=== PATIENT | female | born 1955 | race Asian ===

== ENCOUNTER 2017-03-08 13:55 | Inpatient (IN) | payer MEDICARE, OTHER, MEDICAID ==
[2017-03-08 17:25] LABS: ADD MAN DIFF? NO; HAAIG REFLEX REFLEX FILED
[2017-03-08 17:28] LABS: ABNORMAL IP MESSAGE 1; BASOPHILS % 0.3 % (0.0-2.0); EOSINOPHILS # 0.3 10^3/ul (0.0-0.5); EOSINOPHILS % 2.3 % (0.0-7.0); HEMATOCRIT 33.5 % (37.0-47.0); HEMOGLOBIN 11.9 g/dl (12.0-16.0); LYMPHOCYTES # 1.7 10^3/ul (0.8-2.9); LYMPHOCYTES % 14.5 % (15.0-51.0); MEAN CORPUSCULAR HGB CONC 35.5 g/dl (32.0-37.0); MEAN CORPUSCULAR VOLUME 90.1 fl (82.0-101.0); MONOCYTE # 1.5 10^3/ul (0.3-0.9); MONOCYTES % 13.3 % (0.0-11.0); NEUTROPHIL # 7.9 10^3/ul (1.6-7.5); NEUTROPHILS % 69.2 % (39.0-77.0); NUCLEATED RED BLOOD CELLS% 0.2 /100WBC (0.0-0.0); PLATELET COUNT 144 10^3/UL (140-415); RED BLOOD COUNT 3.72 10^6/ul (4.20-5.40); RED CELL DISTRIBUTION WIDTH 19.4 % (11.5-14.5)
[2017-03-08 17:28] LABS: WHITE BLOOD COUNT 11.4 10^3/ul (4.8-10.8)
[2017-03-08 17:42] LABS: ADD UMIC NO; UR ASCORBIC ACID NEGATIVE (NEGATIVE); UR BILIRUBIN (Dip) NEGATIVE (NEGATIVE); UR BLOOD (Dip) NEGATIVE (NEGATIVE); UR CLARITY CLEAR (CLEAR); UR COLOR AMBER (YELLOW); UR GLUCOSE (Dip) 1+ mg/dL (NEGATIVE); UR KETONES (Dip) NEGATIVE (NEGATIVE); UR LEUKOCYTE ESTERASE (Dip) NEGATIVE Leu/ul (NEGATIVE); UR NITRITE (Dip) NEGATIVE (NEGATIVE); UR SPECIFIC GRAVITY (Dip) 1.013 (1.003-1.030); UR TOTAL PROTEIN (Dip) NEGATIVE (NEGATIVE); UR UROBILINOGEN (Dip) 2+ mg/dL (NEGATIVE)
[2017-03-08 17:45] LABS: INR 0.93; PROTIME 12.5 Sec (11.9-14.9)
[2017-03-08 17:46] LABS: PARTIAL THROMBOPLASTIN TIME 32.3 Sec (25.0-35.0)
[2017-03-08 17:48] LABS: ALANINE AMINOTRANSFERASE 577 IU/L (13-69); ALBUMIN 3.3 g/dl (3.3-4.9); ALBUMIN/GLOBULIN RATIO 0.94; ALKALINE PHOSPHATASE 162 IU/L (42-121); AMYLASE 208 U/L (11-123); ANION GAP 18 (8-16); ASPARTATE AMINO TRANSFERASE 655 IU/L (15-46); BILIRUBIN,INDIRECT 0.5 mg/dl (0-1.1); BILIRUBIN,TOTAL 4.2 mg/dl (0.2-1.3); BLOOD UREA NITROGEN 71 mg/dl (7-20); CALCIUM 8.6 mg/dl (8.4-10.2); CARBON DIOXIDE 25 mmol/L (21-31); CHLORIDE 101 mmol/L (97-110); CREATININE 4.07 mg/dl (0.44-1.00); GLUCOSE 206 mg/dl (70-220); LIPASE 1323 U/L (23-300); POTASSIUM 3.9 mmol/L (3.5-5.1); SODIUM 140 mmol/L (135-144); TOTAL PROTEIN 6.8 g/dl (6.1-8.1)
[2017-03-08 18:03] LABS: TROPONIN-I < 0.012 ng/ml (0.00-0.12)
[2017-03-08 18:09] LABS: POSITIVE DIFF @See below
[2017-03-08] MEDS ORDERED: ACETAMINOPHEN 325 MG TAB PO (18:30)
[2017-03-08] MEDS ORDERED: ONDANSETRON 4 MG INJ IV (18:30)
[2017-03-08] MEDS: PIPER-TAZO 3.375 GM IV (PMX) 50 ML IVPB (18:34)
[2017-03-08 18:51] LABS: HEPATITIS B SURFACE ANTIGEN NEGATIVE (NEGATIVE)
[2017-03-08 19:10] LABS: HEPATITIS B CORE ANTIBODY REACTIVE (NEGATIVE); HEPATITIS C VIRAL ANTIBODY NEGATIVE (NEGATIVE)
[2017-03-08] MEDS: D5W-0.45 NACL + KCL 20 MEQ 1,000 ML IV (20:10)
[2017-03-08 21:39] LABS: CREATININE,URINE RANDOM 74.21 mg/dl (20-320); PROTEIN/CREAT RATIO 0.32 RATIO
[2017-03-08] MEDS: PIPER-TAZO 2.25 GM (PMX) 50 ML IVPB (22:49)
[2017-03-08 23:25] LABS: SODIUM,URINE RANDOM 51 mmol/L (30-90)
[2017-03-09] MEDS: INSULIN ASPART [NOVOLOG] 3 ML PEN SC ×4 (00:49→13:45)
[2017-03-09] MEDS: morphine 2 MG INJ IV (04:42)
[2017-03-09] MEDS: D5W-0.45 NACL + KCL 20 MEQ 1,000 ML IV ×2 (05:19→16:01)
[2017-03-09 06:15] LABS: ADD MAN DIFF? NO
[2017-03-09 06:26] LABS: WHITE BLOOD COUNT 10.2 10^3/ul (4.8-10.8)
[2017-03-09 06:26] LABS: ABNORMAL IP MESSAGE 1; BASOPHILS % 0.3 % (0.0-2.0); EOSINOPHILS # 0.2 10^3/ul (0.0-0.5); EOSINOPHILS % 2.1 % (0.0-7.0); HEMATOCRIT 29.6 % (37.0-47.0); HEMOGLOBIN 10.3 g/dl (12.0-16.0); LYMPHOCYTES # 0.9 10^3/ul (0.8-2.9); LYMPHOCYTES % 8.9 % (15.0-51.0); MEAN CORPUSCULAR HEMOGLOBIN 31.8 pg (29.0-33.0); MEAN CORPUSCULAR HGB CONC 34.8 g/dl (32.0-37.0); MEAN CORPUSCULAR VOLUME 91.4 fl (82.0-101.0); MEAN PLATELET VOLUME 12.2 fl (7.4-10.4); MONOCYTE # 1.6 10^3/ul (0.3-0.9); MONOCYTES % 15.7 % (0.0-11.0); NEUTROPHIL # 7.4 10^3/ul (1.6-7.5); NEUTROPHILS % 72.5 % (39.0-77.0); NUCLEATED RED BLOOD CELLS% 0.2 /100WBC (0.0-0.0); PLATELET COUNT 120 10^3/UL (140-415); POSITIVE DIFF @See below; RED BLOOD COUNT 3.24 10^6/ul (4.20-5.40); RED CELL DISTRIBUTION WIDTH 19.8 % (11.5-14.5)
[2017-03-09 07:08] LABS: CREATINE KINASE 113 IU/L (23-200)
[2017-03-09 07:08] LABS: URIC ACID 9.9 mg/dl (3.1-7.9)
[2017-03-09 07:11] LABS: ALANINE AMINOTRANSFERASE 465 IU/L (13-69); ALBUMIN 2.5 g/dl (3.3-4.9); ALBUMIN/GLOBULIN RATIO 0.75; ALKALINE PHOSPHATASE 121 IU/L (42-121); ANION GAP 12 (8-16); ASPARTATE AMINO TRANSFERASE 531 IU/L (15-46); BILIRUBIN,INDIRECT 0.4 mg/dl (0-1.1); BILIRUBIN,TOTAL 3.6 mg/dl (0.2-1.3); BLOOD UREA NITROGEN 66 mg/dl (7-20); CALCIUM 8.2 mg/dl (8.4-10.2); CARBON DIOXIDE 23 mmol/L (21-31); CHLORIDE 107 mmol/L (97-110); GLUCOSE 215 mg/dl (70-220); MAGNESIUM 2.4 mg/dl (1.7-2.5); POTASSIUM 4.4 mmol/L (3.5-5.1); SODIUM 138 mmol/L (135-144); TOTAL PROTEIN 5.8 g/dl (6.1-8.1)
[2017-03-09 07:19] LABS: FREE THYROXINE INDEX (Calc) 2.56 ug/ml (0.65-3.89); T3 UPTAKE 49.3 % (23.5-40.5); T4 (THYROXINE) 5.2 ug/dl (5.5-11.0)
[2017-03-09] MEDS: PIPER-TAZO 2.25 GM (PMX) 50 ML IVPB ×3 (07:22→21:40)
[2017-03-09] MEDS: PANTOPRAZOLE 40 MG INJ IV (07:22)
[2017-03-09 08:01] LABS: HEMOGLOBIN A1C 8.1 % (0-5.9)
[2017-03-09] MEDS: ALLOPURINOL 100 MG TAB PO (09:26)
[2017-03-09] MEDS ORDERED: hydrALAzine 20 MG INJ IV (18:30)
[2017-03-10] MEDS: D5W-0.45 NACL + KCL 20 MEQ 1,000 ML IV ×3 (03:52→21:06)
[2017-03-10] MEDS: INSULIN ASPART [NOVOLOG] 3 ML PEN SC ×5 (06:00→21:41)
[2017-03-10] MEDS: PIPER-TAZO 2.25 GM (PMX) 50 ML IVPB ×3 (06:21→21:34)
[2017-03-10] MEDS: PANTOPRAZOLE 40 MG INJ IV (06:21)
[2017-03-10] MEDS: ALLOPURINOL 100 MG TAB PO (08:59)
[2017-03-10 09:08] LABS: ADD MAN DIFF? NO
[2017-03-10 09:17] LABS: ABNORMAL IP MESSAGE 1; BASOPHIL # 0.1 10^3/ul (0.0-0.1); BASOPHILS % 0.4 % (0.0-2.0); EOSINOPHILS # 0.3 10^3/ul (0.0-0.5); EOSINOPHILS % 1.8 % (0.0-7.0); HEMOGLOBIN 11.6 g/dl (12.0-16.0); LYMPHOCYTES # 2.1 10^3/ul (0.8-2.9); LYMPHOCYTES % 13.9 % (15.0-51.0); MEAN CORPUSCULAR HEMOGLOBIN 31.7 pg (29.0-33.0); MEAN CORPUSCULAR HGB CONC 35.2 g/dl (32.0-37.0); MEAN CORPUSCULAR VOLUME 90.2 fl (82.0-101.0); MEAN PLATELET VOLUME 12.6 fl (7.4-10.4); MONOCYTE # 1.9 10^3/ul (0.3-0.9); MONOCYTES % 12.4 % (0.0-11.0); NEUTROPHIL # 10.6 10^3/ul (1.6-7.5); NEUTROPHILS % 70.2 % (39.0-77.0); NUCLEATED RED BLOOD CELLS # 0.1 10^3/ul (0.0-0.0); NUCLEATED RED BLOOD CELLS% 0.5 /100WBC (0.0-0.0); PLATELET COUNT 135 10^3/UL (140-415); RED BLOOD COUNT 3.66 10^6/ul (4.20-5.40); RED CELL DISTRIBUTION WIDTH 20.8 % (11.5-14.5)
[2017-03-10 09:17] LABS: WHITE BLOOD COUNT 15.1 10^3/ul (4.8-10.8)
[2017-03-10 09:25] LABS: POSITIVE DIFF @See below
[2017-03-10 10:22] LABS: ANION GAP 19 (8-16); BLOOD UREA NITROGEN 47 mg/dl (7-20); CALCIUM 8.9 mg/dl (8.4-10.2); CARBON DIOXIDE 23 mmol/L (21-31); CHLORIDE 106 mmol/L (97-110); CREATININE 3.11 mg/dl (0.44-1.00); GLUCOSE 105 mg/dl (70-220); POTASSIUM 4.5 mmol/L (3.5-5.1); SODIUM 143 mmol/L (135-144)
[2017-03-10 11:06] LABS: HEMATOCRIT 30.2 % (37.0-47.0); HEMOGLOBIN 10.5 g/dl (12.0-16.0); MEAN CORPUSCULAR HGB CONC 34.8 g/dl (32.0-37.0); MEAN CORPUSCULAR VOLUME 92.1 fl (82.0-101.0); MEAN PLATELET VOLUME 12.1 fl (7.4-10.4); NUCLEATED RED BLOOD CELLS% 0.4 /100WBC (0.0-0.0); PLATELET COUNT 112 10^3/UL (140-415); RED BLOOD COUNT 3.28 10^6/ul (4.20-5.40); RED CELL DISTRIBUTION WIDTH 20.4 % (11.5-14.5)
[2017-03-10 11:06] LABS: WHITE BLOOD COUNT 12.1 10^3/ul (4.8-10.8)
[2017-03-10 11:11] LABS: ADD MAN DIFF? YES; POSITIVE DIFF @See below
[2017-03-10 11:30] LABS: ANISOCYTOSIS 2+ (0-0); BAND NEUTROPHILS #M 2.6 10^3/ul (0.0-0.6); BAND NEUTROPHILS % (M) 22 % (0-4); BASOPHIL #M 0.1 10^3/ul (0.0-0.0); BASOPHILS % (M) 1 % (0-2); EOSINOPHILS % (M) 2 % (0-7); HYPOCHROMASIA 2+ (0-0); LYMPHOCYTES #M 1.4 10^3/ul (0.8-2.9); LYMPHOCYTES % (M) 12 % (15-51); MONOCYTE #M 1.3 10^3/ul (0.3-0.9); MONOCYTES % (M) 11 % (0-11); PLATELET ESTIMATE DECREASED; POLYCHROMASIA 1+ (0-0); SEG NEUT #M 6.6 10^3/ul (1.7-7.5); SEGMENTED NEUTROPHILS (M) % 52 % (39-77); TARGET CELLS 1+ (0-0)
[2017-03-10 11:33] LABS: ALANINE AMINOTRANSFERASE 384 IU/L (13-69); ALBUMIN 2.5 g/dl (3.3-4.9); ALBUMIN/GLOBULIN RATIO 0.83; ALKALINE PHOSPHATASE 109 IU/L (42-121); ANION GAP 14 (8-16); ASPARTATE AMINO TRANSFERASE 412 IU/L (15-46); BILIRUBIN,INDIRECT 0.5 mg/dl (0-1.1); BILIRUBIN,TOTAL 4.1 mg/dl (0.2-1.3); BLOOD UREA NITROGEN 44 mg/dl (7-20); CALCIUM 8.3 mg/dl (8.4-10.2); CARBON DIOXIDE 22 mmol/L (21-31); CHLORIDE 107 mmol/L (97-110); CREATININE 2.97 mg/dl (0.44-1.00); GLUCOSE 243 mg/dl (70-220); POTASSIUM 4.1 mmol/L (3.5-5.1); SODIUM 139 mmol/L (135-144); TOTAL PROTEIN 5.5 g/dl (6.1-8.1)
[2017-03-10] MEDS: hydrALAzine 20 MG INJ IV (21:06)
[2017-03-11] MEDS: PIPER-TAZO 2.25 GM (PMX) 50 ML IVPB ×3 (05:56→21:31)
[2017-03-11] MEDS: PANTOPRAZOLE 40 MG INJ IV ×2 (05:57→19:08)
[2017-03-11] MEDS: INSULIN ASPART [NOVOLOG] 3 ML PEN SC ×3 (05:58→18:00)
[2017-03-11] MEDS: D5W-0.45 NACL + KCL 20 MEQ 1,000 ML IV ×2 (05:58→12:39)
[2017-03-11] MEDS ORDERED: EPHEDrine SULFATE 50 MG/5 ML SYG (07:00)
[2017-03-11] MEDS ORDERED: CIPRO 400 MG/200 ML D5W IVPB (07:00)
[2017-03-11] MEDS ORDERED: LIDOCAINE 100 MG SYRINGE (07:00)
[2017-03-11] MEDS ORDERED: ONDANSETRON 4 MG INJ IV (16:00)
[2017-03-11] MEDS ORDERED: INDOMETHACIN 50 MG SUPP PR (16:01)
[2017-03-11] MEDS ORDERED: FENTAnyl 50 MCG/ML VIAL (16:08)
[2017-03-11] MEDS ORDERED: MIDAZOLAM 1 MG/ML 2 ML INJ (16:08)
[2017-03-11] MEDS ORDERED: PROPOFOL 20 ML (16:08)
[2017-03-11] MEDS ORDERED: SUCCINYLCHOLINE CHLORIDE 100 MG/5 ML SYG IV (16:08)
[2017-03-11] MEDS ORDERED: PHENYLephrine (100 MCG/ML) 5ML SYG (16:23)
[2017-03-11] MEDS ORDERED: GLUCAGON 1 MG INJ (16:33)
[2017-03-11] MEDS: IOHEXOL 300MG/ML 30 ML BTL (16:37)
[2017-03-11] MEDS ORDERED: ONDANSETRON 4 MG INJ (16:52)
[2017-03-11] MEDS ORDERED: SUGAMMADEX SODIUM 200 MG/2 ML VIAL IV (17:31)
[2017-03-11] MEDS ORDERED: ROCURONIUM 50 MG INJ (17:31)
[2017-03-11] MEDS: ALLOPURINOL 100 MG TAB PO (19:08)
[2017-03-12] MEDS: INSULIN ASPART [NOVOLOG] 3 ML PEN SC ×5 (00:37→20:43)
[2017-03-12] MEDS: D5W-0.45 NACL + KCL 20 MEQ 1,000 ML IV ×3 (05:22→23:10)
[2017-03-12] MEDS: PIPER-TAZO 2.25 GM (PMX) 50 ML IVPB (05:23)
[2017-03-12] MEDS: PANTOPRAZOLE 40 MG INJ IV ×2 (05:23→17:51)
[2017-03-12 07:31] LABS: ADD MAN DIFF? NO
[2017-03-12 07:38] LABS: BASOPHILS % 0.4 % (0.0-2.0); EOSINOPHILS # 0.2 10^3/ul (0.0-0.5); EOSINOPHILS % 1.8 % (0.0-7.0); HEMATOCRIT 26.4 % (37.0-47.0); HEMOGLOBIN 9.3 g/dl (12.0-16.0); LYMPHOCYTES # 1.5 10^3/ul (0.8-2.9); LYMPHOCYTES % 16.2 % (15.0-51.0); MEAN CORPUSCULAR HEMOGLOBIN 31.8 pg (29.0-33.0); MEAN CORPUSCULAR HGB CONC 35.2 g/dl (32.0-37.0); MEAN CORPUSCULAR VOLUME 90.4 fl (82.0-101.0); MEAN PLATELET VOLUME 12.6 fl (7.4-10.4); MONOCYTE # 1.1 10^3/ul (0.3-0.9); MONOCYTES % 11.9 % (0.0-11.0); NEUTROPHIL # 6.2 10^3/ul (1.6-7.5); NEUTROPHILS % 66.6 % (39.0-77.0); NUCLEATED RED BLOOD CELLS% 0.3 /100WBC (0.0-0.0); PLATELET COUNT 104 10^3/UL (140-415); RED BLOOD COUNT 2.92 10^6/ul (4.20-5.40); RED CELL DISTRIBUTION WIDTH 20.3 % (11.5-14.5)
[2017-03-12 07:38] LABS: WHITE BLOOD COUNT 9.3 10^3/ul (4.8-10.8)
[2017-03-12 07:49] LABS: ALANINE AMINOTRANSFERASE 285 IU/L (13-69); ALBUMIN 2.3 g/dl (3.3-4.9); ALBUMIN/GLOBULIN RATIO 0.74; ALKALINE PHOSPHATASE 91 IU/L (42-121); ANION GAP 11 (8-16); ASPARTATE AMINO TRANSFERASE 283 IU/L (15-46); BILIRUBIN,INDIRECT 0.6 mg/dl (0-1.1); BILIRUBIN,TOTAL 4.2 mg/dl (0.2-1.3); BLOOD UREA NITROGEN 25 mg/dl (7-20); CALCIUM 8.8 mg/dl (8.4-10.2); CARBON DIOXIDE 23 mmol/L (21-31); CHLORIDE 111 mmol/L (97-110); GLUCOSE 122 mg/dl (70-220); POTASSIUM 4.3 mmol/L (3.5-5.1); SODIUM 141 mmol/L (135-144); TOTAL PROTEIN 5.4 g/dl (6.1-8.1)
[2017-03-12 07:52] LABS: ANION GAP 13 (8-16); BLOOD UREA NITROGEN 25 mg/dl (7-20); CALCIUM 8.5 mg/dl (8.4-10.2); CARBON DIOXIDE 22 mmol/L (21-31); CHLORIDE 111 mmol/L (97-110); CREATININE 2.44 mg/dl (0.44-1.00); GLUCOSE 116 mg/dl (70-220); POTASSIUM 4.5 mmol/L (3.5-5.1); SODIUM 141 mmol/L (135-144)
[2017-03-12] MEDS: ALLOPURINOL 100 MG TAB PO (09:31)
[2017-03-12 11:34] LABS: LIPASE 334 U/L (23-300)
[2017-03-12] MEDS: LEVOFLOXACIN 250MG/D5W (PMX) 50 ML IVPB (12:30)
[2017-03-12 18:08] LABS: HEPATITIS B CORE ANTIBODY REACTIVE (NEGATIVE)
[2017-03-12] MEDS ORDERED: GLUCOSE GEL 15 GRAM TUBE PO ×2 (19:30)
[2017-03-12] MEDS ORDERED: GLUCAGON 1 MG INJ IM (19:30)
[2017-03-12] MEDS ORDERED: GLUCOSE GEL 15 GRAM TUBE BUCCAL (19:30)
[2017-03-12] MEDS ORDERED: DEXTROSE 50% 50 ML SYRINGE IV ×2 (19:30)
[2017-03-13] MEDS: morphine 2 MG INJ IV (04:09)
[2017-03-13] MEDS: PANTOPRAZOLE 40 MG INJ IV ×2 (05:11→17:30)
[2017-03-13 07:19] LABS: ALANINE AMINOTRANSFERASE 301 IU/L (13-69); ALBUMIN 2.8 g/dl (3.3-4.9); ALBUMIN/GLOBULIN RATIO 0.77; ALKALINE PHOSPHATASE 109 IU/L (42-121); ANION GAP 15 (8-16); ASPARTATE AMINO TRANSFERASE 324 IU/L (15-46); BILIRUBIN,INDIRECT 0.8 mg/dl (0-1.1); BILIRUBIN,TOTAL 5.3 mg/dl (0.2-1.3); BLOOD UREA NITROGEN 17 mg/dl (7-20); CARBON DIOXIDE 22 mmol/L (21-31); CHLORIDE 107 mmol/L (97-110); CREATININE 2.37 mg/dl (0.44-1.00); GLUCOSE 150 mg/dl (70-220); LIPASE 200 U/L (23-300); POTASSIUM 4.7 mmol/L (3.5-5.1); SODIUM 139 mmol/L (135-144); TOTAL PROTEIN 6.4 g/dl (6.1-8.1)
[2017-03-13] MEDS: INSULIN ASPART [NOVOLOG] 3 ML PEN SC ×4 (07:30→20:29)
[2017-03-13] MEDS: ALLOPURINOL 100 MG TAB PO (08:25)
[2017-03-13] MEDS: LEVOFLOXACIN 250MG/D5W (PMX) 50 ML IVPB (12:35)
[2017-03-13] MEDS: D5W-0.45 NACL + KCL 20 MEQ 1,000 ML IV (22:35)
[2017-03-14] MEDS: morphine 2 MG INJ IV ×4 (00:41→22:33)
[2017-03-14] MEDS: PANTOPRAZOLE 40 MG INJ IV ×2 (05:05→17:27)
[2017-03-14] MEDS: INSULIN ASPART [NOVOLOG] 3 ML PEN SC ×4 (07:30→21:00)
[2017-03-14] MEDS: ALLOPURINOL 100 MG TAB PO (08:35)
[2017-03-14] MEDS: hydrALAzine 20 MG INJ IV (08:38)
[2017-03-14] MEDS: LEVOFLOXACIN 250MG/D5W (PMX) 50 ML IVPB (12:04)
[2017-03-14] MEDS: LIDOCAINE 1% (MPF) 5 ML VIAL (15:13)
[2017-03-14] MEDS: D5W-0.45 NACL + KCL 20 MEQ 1,000 ML IV (17:27)
[2017-03-15] MEDS: ONDANSETRON 4 MG INJ IV (03:20)
[2017-03-15] MEDS: PANTOPRAZOLE 40 MG INJ IV ×2 (04:07→17:20)
[2017-03-15] MEDS: morphine 2 MG INJ IV ×3 (04:08→20:53)
[2017-03-15] MEDS: INSULIN ASPART [NOVOLOG] 3 ML PEN SC ×4 (08:14→20:51)
[2017-03-15] MEDS: ALLOPURINOL 100 MG TAB PO (09:33)
[2017-03-15] MEDS: D5W-0.45 NACL + KCL 20 MEQ 1,000 ML IV ×2 (09:33→12:37)
[2017-03-15 10:39] LABS: ADD MAN DIFF? NO
[2017-03-15 10:44] LABS: BASOPHIL # 0.1 10^3/ul (0.0-0.1); BASOPHILS % 0.9 % (0.0-2.0); EOSINOPHILS # 0.2 10^3/ul (0.0-0.5); EOSINOPHILS % 2.2 % (0.0-7.0); HEMATOCRIT 31.9 % (37.0-47.0); HEMOGLOBIN 11.2 g/dl (12.0-16.0); LYMPHOCYTES # 1.7 10^3/ul (0.8-2.9); LYMPHOCYTES % 17.3 % (15.0-51.0); MEAN CORPUSCULAR HGB CONC 35.1 g/dl (32.0-37.0); MEAN CORPUSCULAR VOLUME 91.1 fl (82.0-101.0); MEAN PLATELET VOLUME 12.5 fl (7.4-10.4); MONOCYTES % 10.4 % (0.0-11.0); NEUTROPHIL # 6.4 10^3/ul (1.6-7.5); NEUTROPHILS % 64.2 % (39.0-77.0); NUCLEATED RED BLOOD CELLS% 0.2 /100WBC (0.0-0.0); PLATELET COUNT 122 10^3/UL (140-415); RED CELL DISTRIBUTION WIDTH 18.3 % (11.5-14.5)
[2017-03-15 10:44] LABS: WHITE BLOOD COUNT 9.9 10^3/ul (4.8-10.8)
[2017-03-15 11:03] LABS: INR 1.06; PROTIME 13.9 Sec (11.9-14.9); PT RATIO 1.1
[2017-03-15 11:04] LABS: PARTIAL THROMBOPLASTIN TIME 34.7 Sec (25.0-35.0)
[2017-03-15 11:09] LABS: ALANINE AMINOTRANSFERASE 266 IU/L (13-69); ALBUMIN 2.9 g/dl (3.3-4.9); ALBUMIN/GLOBULIN RATIO 0.82; ALKALINE PHOSPHATASE 123 IU/L (42-121); ANION GAP 16 (8-16); ASPARTATE AMINO TRANSFERASE 357 IU/L (15-46); BILIRUBIN,TOTAL 6.6 mg/dl (0.2-1.3); BLOOD UREA NITROGEN 17 mg/dl (7-20); CALCIUM 9.2 mg/dl (8.4-10.2); CARBON DIOXIDE 22 mmol/L (21-31); CHLORIDE 103 mmol/L (97-110); CREATININE 2.06 mg/dl (0.44-1.00); GLUCOSE 174 mg/dl (70-220); POTASSIUM 4.1 mmol/L (3.5-5.1); SODIUM 137 mmol/L (135-144); TOTAL PROTEIN 6.4 g/dl (6.1-8.1)
[2017-03-15 11:13] LABS: PHOSPHORUS 4.1 mg/dl (2.5-4.9)
[2017-03-15] MEDS: LEVOFLOXACIN 250MG/D5W (PMX) 50 ML IVPB (12:36)
[2017-03-15] MEDS: AMLODIPINE 10 MG TAB PO (16:30)
[2017-03-15] MEDS: MAGNESIUM SULFATE 4 GM/100 ML 100 ML IVPB (16:30)
[2017-03-16] MEDS: morphine 2 MG INJ IV ×3 (02:30→21:29)
[2017-03-16] MEDS: PANTOPRAZOLE 40 MG INJ IV ×2 (05:32→18:05)
[2017-03-16] MEDS: INSULIN ASPART [NOVOLOG] 3 ML PEN SC ×5 (08:06→21:00)
[2017-03-16] MEDS: AMLODIPINE 10 MG TAB PO (08:24)
[2017-03-16] MEDS: ALLOPURINOL 100 MG TAB PO (08:24)
[2017-03-16 08:26] LABS: ALANINE AMINOTRANSFERASE 240 IU/L (13-69); ALBUMIN 2.2 g/dl (3.3-4.9); ALKALINE PHOSPHATASE 112 IU/L (42-121); ANION GAP 11 (8-16); ASPARTATE AMINO TRANSFERASE 335 IU/L (15-46); BILIRUBIN,INDIRECT 0.9 mg/dl (0-1.1); BILIRUBIN,TOTAL 5.5 mg/dl (0.2-1.3); BLOOD UREA NITROGEN 19 mg/dl (7-20); CALCIUM 8.8 mg/dl (8.4-10.2); CARBON DIOXIDE 23 mmol/L (21-31); CHLORIDE 103 mmol/L (97-110); CREATININE 2.15 mg/dl (0.44-1.00); GLUCOSE 172 mg/dl (70-220); POTASSIUM 4.1 mmol/L (3.5-5.1); SODIUM 133 mmol/L (135-144); TOTAL PROTEIN 5.3 g/dl (6.1-8.1)
[2017-03-16] MEDS: LEVOFLOXACIN 250MG/D5W (PMX) 50 ML IVPB (11:04)
[2017-03-16] MEDS: D5W-0.45 NACL + KCL 20 MEQ 1,000 ML IV ×2 (11:05→18:06)
[2017-03-16 21:32] LABS: IRON 110 ug/dl (35-150)
[2017-03-16 21:41] LABS: % IRON SATURATION 41 % SAT (22-52); TOTAL IRON BINDING CAPACITY 268 ug/dl (241-421)
[2017-03-17] MEDS: morphine 2 MG INJ IV ×2 (00:59→20:57)
[2017-03-17] MEDS: D5W-0.45 NACL + KCL 20 MEQ 1,000 ML IV ×2 (04:39→20:51)
[2017-03-17] MEDS: PANTOPRAZOLE 40 MG INJ IV ×2 (04:42→17:19)
[2017-03-17] MEDS: INSULIN ASPART [NOVOLOG] 3 ML PEN SC ×5 (08:53→20:45)
[2017-03-17] MEDS: ALLOPURINOL 100 MG TAB PO (09:28)
[2017-03-17] MEDS: AMLODIPINE 10 MG TAB PO (09:28)
[2017-03-17 10:46] LABS: ALANINE AMINOTRANSFERASE 267 IU/L (13-69); ALBUMIN 2.9 g/dl (3.3-4.9); ALBUMIN/GLOBULIN RATIO 0.82; ALKALINE PHOSPHATASE 146 IU/L (42-121); ANION GAP 14 (8-16); ASPARTATE AMINO TRANSFERASE 447 IU/L (15-46); BILIRUBIN,INDIRECT 1.1 mg/dl (0-1.1); BLOOD UREA NITROGEN 21 mg/dl (7-20); CALCIUM 8.8 mg/dl (8.4-10.2); CARBON DIOXIDE 23 mmol/L (21-31); CHLORIDE 103 mmol/L (97-110); CREATININE 1.99 mg/dl (0.44-1.00); GLUCOSE 233 mg/dl (70-220); MAGNESIUM 1.5 mg/dl (1.7-2.5); POTASSIUM 4.3 mmol/L (3.5-5.1); SODIUM 136 mmol/L (135-144); TOTAL PROTEIN 6.4 g/dl (6.1-8.1)
[2017-03-17] MEDS: LEVOFLOXACIN 250MG/D5W (PMX) 50 ML IVPB (11:37)
[2017-03-17 12:58] LABS: MITOCHONDRIAL TB NEGATIVE (NEGATIVE); SMOOTH MUSCLE AB SCREEN POSITIVE (NEGATIVE); SMOOTH MUSCLE AB TITER 1:40 titer (<1:20)
[2017-03-17 13:42] LABS: ANA SCREEN NEGATIVE (NEGATIVE)
[2017-03-17 14:26] LABS: CERULOPLASMIN 35 mg/dL (18-53)
[2017-03-17] MEDS: INSULIN GLARGINE [LANtus] 3 ML PEN SC (20:50)
[2017-03-18] MEDS: PANTOPRAZOLE 40 MG INJ IV ×2 (05:07→17:30)
[2017-03-18] MEDS: morphine 2 MG INJ IV ×2 (05:11→20:30)
[2017-03-18] MEDS: INSULIN ASPART [NOVOLOG] 3 ML PEN SC ×7 (07:30→20:37)
[2017-03-18 07:48] LABS: ADD MAN DIFF? NO
[2017-03-18 07:51] LABS: WHITE BLOOD COUNT 9.6 10^3/ul (4.8-10.8)
[2017-03-18 07:51] LABS: BASOPHILS % 0.4 % (0.0-2.0); EOSINOPHILS # 0.1 10^3/ul (0.0-0.5); EOSINOPHILS % 1.5 % (0.0-7.0); HEMATOCRIT 26.4 % (37.0-47.0); HEMOGLOBIN 8.9 g/dl (12.0-16.0); LYMPHOCYTES # 1.7 10^3/ul (0.8-2.9); LYMPHOCYTES % 17.2 % (15.0-51.0); MEAN CORPUSCULAR HEMOGLOBIN 31.7 pg (29.0-33.0); MEAN CORPUSCULAR HGB CONC 33.7 g/dl (32.0-37.0); MEAN PLATELET VOLUME 10.9 fl (7.4-10.4); MONOCYTE # 0.9 10^3/ul (0.3-0.9); MONOCYTES % 9.1 % (0.0-11.0); NEUTROPHIL # 6.8 10^3/ul (1.6-7.5); NEUTROPHILS % 70.1 % (39.0-77.0); PLATELET COUNT 125 10^3/UL (140-415); RED BLOOD COUNT 2.81 10^6/ul (4.20-5.40); RED CELL DISTRIBUTION WIDTH 18.3 % (11.5-14.5)
[2017-03-18 07:52] LABS: POSITIVE DIFF @See below
[2017-03-18 08:19] LABS: ANION GAP 9 (8-16); BLOOD UREA NITROGEN 19 mg/dl (7-20); CALCIUM 8.8 mg/dl (8.4-10.2); CARBON DIOXIDE 26 mmol/L (21-31); CHLORIDE 105 mmol/L (97-110); CREATININE 1.83 mg/dl (0.44-1.00); GLUCOSE 133 mg/dl (70-220); POTASSIUM 4.1 mmol/L (3.5-5.1); SODIUM 136 mmol/L (135-144)
[2017-03-18] MEDS: ALLOPURINOL 100 MG TAB PO (09:23)
[2017-03-18] MEDS: AMLODIPINE 10 MG TAB PO (09:23)
[2017-03-18] MEDS: D5W-0.45 NACL + KCL 20 MEQ 1,000 ML IV (13:19)
[2017-03-18] MEDS: INSULIN GLARGINE [LANtus] 3 ML PEN SC (20:33)
[2017-03-19] MEDS: PANTOPRAZOLE 40 MG INJ IV ×2 (06:19→17:10)
[2017-03-19 06:22] LABS: ADD MAN DIFF? NO
[2017-03-19 06:39] LABS: BASOPHIL # 0.1 10^3/ul (0.0-0.1); BASOPHILS % 0.5 % (0.0-2.0); EOSINOPHILS # 0.2 10^3/ul (0.0-0.5); EOSINOPHILS % 2.4 % (0.0-7.0); HEMATOCRIT 28.1 % (37.0-47.0); HEMOGLOBIN 9.6 g/dl (12.0-16.0); LYMPHOCYTES # 1.8 10^3/ul (0.8-2.9); LYMPHOCYTES % 18.2 % (15.0-51.0); MEAN CORPUSCULAR HEMOGLOBIN 32.2 pg (29.0-33.0); MEAN CORPUSCULAR HGB CONC 34.2 g/dl (32.0-37.0); MEAN CORPUSCULAR VOLUME 94.3 fl (82.0-101.0); MEAN PLATELET VOLUME 11.6 fl (7.4-10.4); MONOCYTES % 10.1 % (0.0-11.0); NEUTROPHIL # 6.5 10^3/ul (1.6-7.5); NEUTROPHILS % 67.6 % (39.0-77.0); PLATELET COUNT 157 10^3/UL (140-415); RED BLOOD COUNT 2.98 10^6/ul (4.20-5.40); RED CELL DISTRIBUTION WIDTH 18.4 % (11.5-14.5)
[2017-03-19 06:39] LABS: WHITE BLOOD COUNT 9.7 10^3/ul (4.8-10.8)
[2017-03-19 07:03] LABS: ANION GAP 13 (8-16); BLOOD UREA NITROGEN 23 mg/dl (7-20); CALCIUM 8.8 mg/dl (8.4-10.2); CARBON DIOXIDE 25 mmol/L (21-31); CHLORIDE 106 mmol/L (97-110); CREATININE 1.84 mg/dl (0.44-1.00); GLUCOSE 103 mg/dl (70-220); POTASSIUM 4.5 mmol/L (3.5-5.1); SODIUM 139 mmol/L (135-144)
[2017-03-19] MEDS: INSULIN ASPART [NOVOLOG] 3 ML PEN SC ×7 (07:30→21:00)
[2017-03-19] MEDS: ALLOPURINOL 100 MG TAB PO (08:49)
[2017-03-19] MEDS: AMLODIPINE 10 MG TAB PO (08:49)
[2017-03-19] MEDS: morphine 2 MG INJ IV (16:07)
[2017-03-19] MEDS: INSULIN GLARGINE [LANtus] 3 ML PEN SC (21:38)
[2017-03-20] MEDS: PANTOPRAZOLE 40 MG INJ IV (06:21)
[2017-03-20] MEDS: INSULIN ASPART [NOVOLOG] 3 ML PEN SC ×7 (07:30→20:35)
[2017-03-20] MEDS: ALLOPURINOL 100 MG TAB PO (08:05)
[2017-03-20] MEDS: AMLODIPINE 10 MG TAB PO (08:05)
[2017-03-20] MEDS: SOD CHLORIDE 0.45% 1,000 ML IV (12:50)
[2017-03-20] MEDS: PANTOPRAZOLE (EC) 40 MG TAB PO (17:24)
[2017-03-20] MEDS: INSULIN GLARGINE [LANtus] 3 ML PEN SC (20:34)
[2017-03-20] MEDS: morphine 2 MG INJ IV (20:37)
[2017-03-21] MEDS: PANTOPRAZOLE (EC) 40 MG TAB PO (05:12)
[2017-03-21] MEDS: morphine 2 MG INJ IV (05:12)
[2017-03-21 05:41] LABS: ADD MAN DIFF? NO
[2017-03-21 05:47] LABS: BASOPHIL # 0.1 10^3/ul (0.0-0.1); BASOPHILS % 0.8 % (0.0-2.0); EOSINOPHILS # 0.2 10^3/ul (0.0-0.5); EOSINOPHILS % 1.9 % (0.0-7.0); HEMATOCRIT 26.3 % (37.0-47.0); HEMOGLOBIN 8.9 g/dl (12.0-16.0); LYMPHOCYTES # 1.8 10^3/ul (0.8-2.9); LYMPHOCYTES % 21.2 % (15.0-51.0); MEAN CORPUSCULAR HEMOGLOBIN 31.8 pg (29.0-33.0); MEAN CORPUSCULAR HGB CONC 33.8 g/dl (32.0-37.0); MEAN CORPUSCULAR VOLUME 93.9 fl (82.0-101.0); MONOCYTES % 11.8 % (0.0-11.0); NEUTROPHIL # 5.3 10^3/ul (1.6-7.5); NEUTROPHILS % 63.7 % (39.0-77.0); PLATELET COUNT 184 10^3/UL (140-415); RED CELL DISTRIBUTION WIDTH 18.2 % (11.5-14.5)
[2017-03-21 05:47] LABS: WHITE BLOOD COUNT 8.3 10^3/ul (4.8-10.8)
[2017-03-21 06:06] LABS: ANION GAP 10 (8-16); BLOOD UREA NITROGEN 28 mg/dl (7-20); CALCIUM 8.8 mg/dl (8.4-10.2); CARBON DIOXIDE 25 mmol/L (21-31); CHLORIDE 106 mmol/L (97-110); CREATININE 1.61 mg/dl (0.44-1.00); GLUCOSE 116 mg/dl (70-220); POTASSIUM 3.8 mmol/L (3.5-5.1); SODIUM 137 mmol/L (135-144)
[2017-03-21] MEDS: INSULIN ASPART [NOVOLOG] 3 ML PEN SC ×4 (07:30→12:04)
[2017-03-21] MEDS: ALLOPURINOL 100 MG TAB PO (08:48)
[2017-03-21] MEDS: AMLODIPINE 10 MG TAB PO (08:48)
[2017-03-21] MEDS: SOD CHLORIDE 0.45% 1,000 ML IV (08:49)
== END 2017-03-21 16:15 | disposition home or self-care (01) | DRG 438 ==
LOC: PP2 03-18 10:16 → E/R 13:55 → MS4 18:18
PROVIDERS: Internal Medicine
PROC: 0DJ08ZZ Inspection of Upper Intestinal Tract, Via Natural or Artificial Opening Endoscopic (ICD-10-PCS; principal; 2017-03-11 16:00)
PROC: 0FB13ZX Excision of Right Lobe Liver, Percutaneous Approach, Diagnostic (ICD-10-PCS; 2017-03-11 16:00)
DX: K85.10 Biliary acute pancreatitis without necrosis or infection (principal); N17.0 Acute kidney failure with tubular necrosis; K25.4 Chronic or unspecified gastric ulcer with hemorrhage; K26.4 Chronic or unspecified duodenal ulcer with hemorrhage; N39.0 Urinary tract infection, site not specified; E11.22 Type 2 diabetes mellitus with diabetic chronic kidney disease; E83.42 Hypomagnesemia; I12.9 Hypertensive chronic kidney disease with stage 1 through stage 4 chronic kidney disease, or unspecified chronic kidney disease; N18.9 Chronic kidney disease, unspecified; K75.4 Autoimmune hepatitis; K74.0 Hepatic fibrosis; K57.10 Diverticulosis of small intestine without perforation or abscess without bleeding; E79.0 Hyperuricemia without signs of inflammatory arthritis and tophaceous disease; E78.5 Hyperlipidemia, unspecified; N20.0 Calculus of kidney; B96.1 Klebsiella pneumoniae [K. pneumoniae] as the cause of diseases classified elsewhere; Z87.442 Personal history of urinary calculi
CPT/HCPCS: 74176; 74181; 76775; 76942; 80048; 80053; 81003; 82150; 82390; 82525; 82550; 82570; 82962; 83036; 83540; 83690; 83735; 84100; 84300; 84436; 84479; 84484; 84560; 85025; 85610; 85730; 86038; 86255; 86704; 86709; 86803; 87086; 87340; 88307; 88313; 89190; 93005; 96365; 96367; 96372; 96375; 96376; 99285-25

== ENCOUNTER 2017-03-27 13:03 | Emergency (ER) | payer SELFPAY, OTHER, MEDICARE | END 2017-03-27 17:48 | disposition left against medical advice (07) | LOC: E/R 13:03 | DX: Z53.21 Procedure and treatment not carried out due to patient leaving prior to being seen by health care provider (principal) ==